=== PATIENT | female | born 1970 | race Caucasian/White ===

== ENCOUNTER 2019-12-06 16:15 | Inpatient (IN) | payer OTHER ==
[~2019-12-06] VITALS: Ht 157.5 cm; Wt 71.7 kg
[2019-12-06 16:20] VITALS: BP 132/93
--- NOTE | 2019-12-06 16:28 | NUR ---
PT TO BED 5 WITH STEADY GAIT
[2019-12-06] MEDS ORDERED: NACL 0.9% 1,000 ML IV SCH (16:47)
[2019-12-06] MEDS ORDERED: NACL 0.9% 500 ML IV ONE ×2 (16:47)
--- NOTE | 2019-12-06 16:58 | NUR ---
C/O GENERALIZED WEAKNESS WITH BLURRED VISION X 3 DAYS---DENIES RECENT INJURY FULL CLEAR SPEECH, AMBULATORY WITH STEADY GAIT, NO FACIAL ASYMMETRY, EQUAL MARKETING OPERATIONS ASSOCIATE/PUSHES---
[2019-12-06 17:06] LABS: BASOPHILS % (AUTO) 1.3 % (0.0-2.0); EOSINOPHILS % (AUTO) 0.4 % (0.0-4.0); HEMATOCRIT 43.4 % (36-48); HEMOGLOBIN 14.5 g/dL (12.0-16.0); LYMPHOCYTES # (AUTO) 1.5 K/uL (2.5-16.5); LYMPHOCYTES % (AUTO) 40.5 % (20.5-51.1); MEAN CORPUSCULAR HEMOGLOBIN 27 pg (27-31); MEAN CORPUSCULAR HGB CONC 33 g/dL (33-37); MEAN CORPUSCULAR VOLUME 81.5 fL (80-94); MONOCYTES # (AUTO) 0.3 K/uL (0.8-1.0); NEUTROPHILS # (AUTO) 1.8 K/uL (1.8-7.7); NEUTROPHILS % (AUTO) 48.8 % (42.2-75.2); PLATELET COUNT (AUTO) 212 K/uL (140-450); RED BLOOD CELL COUNT(AUTO) 5.32 MIL/uL (4.20-5.40); RED CELL DISTRIBUTION WIDTH 13.1 % (11.6-13.7); WHITE BLOOD COUNT (AUTO) 3.6 K/uL (4.8-10.8)
--- NOTE | 2019-12-06 17:10 | NUR ---
CXR AT BEDSIDE
[2019-12-06 17:12] LABS: APPEARANCE,URINE CLEAR (CLEAR); BILIRUBIN,URINE NEGATIVE (NEGATIVE); BLOOD, URINE TRACE-I (NEGATIVE); COLOR,URINE YELLOW (YELLOW); LEUKOCYTE ESTERASE ,URINE NEGATIVE (NEGATIVE); NITRITE, URINE NEGATIVE (NEGATIVE); PH,URINE 5.5 (5.0-9.0); UGLUCOSE 3+ (NEGATIVE)
[2019-12-06 17:42] LABS: PROTHROMBIN TIME 10.2 secs (10.8-13.4)
[2019-12-06 17:55] LABS: ANION GAP 14.1 (8-16); CARBON DIOXIDE 29.9 mmol/L (21-32); CHLORIDE 86 mmol/L (98-107); CREATININE 1.5 mg/dL (0.6-1.3); GFR ARICAN-AMERICAN 47 mL/min (>90); GLUCOSE 793 mg/dL (74-106); SODIUM SERUM 126 mmol/L (136-145); UREA NITROGEN, BLOOD 25 mg/dL (7-18)
[2019-12-06] MEDS ORDERED: INSULIN REGULAR, HUMAN 100 UNIT/ML VIAL IVP ONE (17:55)
[2019-12-06 17:56] LABS: ACETONE, SERUM NEGATIVE (NEGATIVE); ALBUMIN 4.3 g/dL (3.4-5.0); ASPARTATE AMINOTRANSFERASE 18 U/L (15-37); TOTAL BILIRUBIN 0.5 mg/dL (0.0-1.0)
[2019-12-06] MEDS ORDERED: SUMA100T1 PO (18:24)
[2019-12-06] MEDS ORDERED: HYDR12.516 PO (18:24)
[2019-12-06] MEDS ORDERED: LORA10TA19 PO (18:24)
[2019-12-06] MEDS ORDERED: OMEP20EC11 PO (18:24)
[2019-12-06] MEDS ORDERED: DIVA250E1 PO (18:24)
[2019-12-06] MEDS ORDERED: IBUP-2213 PO (18:24)
[2019-12-06] MEDS ORDERED: NAPR-54 PO (18:24)
[2019-12-06] MEDS ORDERED: CITA20TA15 PO (18:24)
[2019-12-06] MEDS ORDERED: AMOX500C25 PO (18:24)
[2019-12-06] MEDS ORDERED: GABA300C PO (18:24)
[2019-12-06] MEDS ORDERED: BACL10TA4 PO (18:24)
[2019-12-06] MEDS: NACL 0.9% 1,500 ML IV ONE ×2 (18:50→20:23)
--- NOTE | 2019-12-06 19:27 | NUR ---
Pt transferred to Tele via [facility] ROOM 120-A REPORT GIVEN TO KAREEM KO
[2019-12-06 19:55] VITALS: BP 100/60
--- NOTE | 2019-12-06 19:55 | NUR ---
RECIEVED PT FROM ER/ WHEELCHAIR . NID - , [id number] . IV SITE INTACT AND PATENT . BEARBLE ON AND OFF ABDL. PAIN. WALKS TO BED . ADMISSION ASSESSENT DONE . MRSA SPECIMEN SENT TO LAB. PUT ON SAFETY / FALL PRECAUTION PROTOCOL - REMINDS THE USE OF CALL LIGHT WHEN SHE WANTS TO GO O BATHROOM - BED ALARM ON - WILL CONT. TO MONITOR - WILL CONT. THE IV BOLUS - LACTIC ACID 3.3 .-CLOSE WATCH.
--- NOTE | 2019-12-06 20:23 | NUR ---
THE DR'S ORDER 1,500 BULUS IVF - THE 1,OOO CC - ADMINISTERED .
--- NOTE | 2019-12-06 20:57 | NUR ---
PAGED DR. BORGES REGARDING THE IVF FLUID OREDERD W/ TOTAL OF 3L BOLUS - LACTIC ACID 3.3 - WAITING CALL BACK
--- NOTE | 2019-12-06 20:58 | NUR ---
DR BORGES CALL HE SAID SAID YES THE IVF ORDERED IS 3L BOLUS AFTER 3L BOLUS GIVE NSS 5OO RUN FOR 100CC / HR . INFORM DR BORGES ABOUT THE LATEST HGT 393 - HE SAID HE WILL PUT FURTHER ORDER LATER .
[2019-12-06] MEDS: NACL 0.9% 1,000 ML IV SCH (21:02)
[2019-12-06] MEDS ORDERED: MORPHINE SULFATE 2 MG/ML SYR IVP PRN (21:05)
[2019-12-06] MEDS ORDERED: HYDROcodone/APAP 5/325 MG 1 TAB TAB PO PRN (21:05)
[2019-12-06] MEDS ORDERED: ONDANSETRON 4 MG/2 ML VIAL IVP PRN (21:05)
[2019-12-06] MEDS ORDERED: ACETAMINOPHEN 325 MG TAB PO PRN (21:05)
[2019-12-06] MEDS ORDERED: ZOLPIDEM 10 MG TAB PO PRN (21:10)
[2019-12-06] MEDS: NACL 0.9% 500 ML IV SCH (22:55)
[2019-12-07] VITALS: BP 116/75
--- NOTE | 2019-12-07 | NUR ---
MADE ROUNDS . NO S/SXS OF ACUTE DISTRESS NOTED AT THIS TIME.
[2019-12-07] MEDS: NACL 0.9% 500 ML IV SCH ×3 (02:55→12:55)
[2019-12-07] MEDS: NACL 0.9% 1,000 ML IV SCH (03:44)
[2019-12-07 04:00] VITALS: BP 117/76
--- NOTE | 2019-12-07 04:00 | NUR ---
MADE ROUNDS. NO S/SXS OF ACUTE DISTRESS NOTED AT THIS TIME.
[2019-12-07] MEDS ORDERED: glipiZIDE 10 MG TAB ONE (05:50)
--- NOTE | 2019-12-07 06:00 | NUR ---
MADE ROUNDS . HGT TAKEN - 3O3 - DUE GLUCOTROL P.O GIVEN - WILL CONT. TO MONITOR.
[2019-12-07 06:19] LABS: ANION GAP 13.1 (8-16); CARBON DIOXIDE 27.4 mmol/L (21-32); CREATININE 0.9 mg/dL (0.6-1.3); POTASSIUM 3.5 mmol/L (3.5-5.1)
[2019-12-07 06:25] LABS: BASOPHILS % (AUTO) 0.8 % (0.0-2.0); EOSINOPHILS % (AUTO) 0.4 % (0.0-4.0); HEMATOCRIT 35.9 % (36-48); HEMOGLOBIN 11.9 g/dL (12.0-16.0); LYMPHOCYTES % (AUTO) 48.7 % (20.5-51.1); MEAN CORPUSCULAR HEMOGLOBIN 27 pg (27-31); MEAN CORPUSCULAR HGB CONC 33 g/dL (33-37); MEAN CORPUSCULAR VOLUME 81.4 fL (80-94); MONOCYTES # (AUTO) 0.3 K/uL (0.8-1.0); MONOCYTES % (AUTO) 7.9 % (1.7-9.3); NEUTROPHILS # (AUTO) 1.8 K/uL (1.8-7.7); NEUTROPHILS % (AUTO) 42.2 % (42.2-75.2); PLATELET COUNT (AUTO) 165 K/uL (140-450); RED BLOOD CELL COUNT(AUTO) 4.41 MIL/uL (4.20-5.40); RED CELL DISTRIBUTION WIDTH 13.4 % (11.6-13.7); WHITE BLOOD COUNT (AUTO) 4.2 K/uL (4.8-10.8)
--- NOTE | 2019-12-07 07:26 | NUR ---
ENDORSED TO AM SHIFT -STABLE LATEST HGT 303
--- NOTE | 2019-12-07 07:27 | NUR ---
RECEIVED REPORT FROM GRID CASTING MACHINE OPERATOR HELPER NURSE FOR CONTINUITY OF CARE. PT IN STABLE CONDITION. RESPIRATIONS EVEN AND UNLABORED, ROOM AIR. IV INTACT AND PATENT. SAFETY MEASURES IN PLACE. BED IN LOW POSITION. BED ALARM ON. CALL LIGHT AT BEDSIDE. WILL CONTINUE TO MONITOR.
[2019-12-07] MEDS ORDERED: glipiZIDE 10 MG TAB PO SCH (07:30)
[2019-12-07 08:00] VITALS: BP 117/86
[2019-12-07] MEDS ORDERED: metFORMIN 850 MG TAB PO SCH (08:00)
--- NOTE | 2019-12-07 08:04 | NUR ---
PATIENT HAS BEEN SCREENED AND CATEGORIZED HIGH NUTRITION RISK. PATIENT WILL BE SEEN WITHIN 1-2 DAYS OF ADMISSION. 12/07/19-12/08/[address]
--- NOTE | 2019-12-07 08:13 | NUR ---
GAVE ORDERED DUE MEDICATIONS AT THIS TIME. PT TOLERATED WELL. BED IN LOW POSITION. CALL LIGHT AT BEDSIDE. WILL CONTINUE TO MONITOR.
[2019-12-07] MEDS ORDERED: ENOXAPARIN 40 MG/0.4 ML SYR SUBQ SCH (09:00)
--- NOTE | 2019-12-07 10:33 | NUR ---
PT SLEEPING AT THIS TIME. RESPIRATIONS EVEN AND UNLABORED. BED IN LOW POSITION. CALL LIGHT AT BEDSIDE. WILL CONTINUE TO MONITOR.
[2019-12-07] MEDS ORDERED: MORPHINE SULFATE 2 MG/ML SYR IVP PRN (12:25)
[2019-12-07] MEDS ORDERED: MAGNESIUM OXIDE 400 MG TAB PO SCH (12:45)
--- NOTE | 2019-12-07 12:45 | NUR ---
PT EATING LUNCH AT THIS TIME. PT IN STABLE CONDITION. BED IN LOW POSITION. CALL LIGHT AT BEDSIDE. WILL CONTINUE TO MONITOR.
--- NOTE | 2019-12-07 13:58 | NUR ---
DC PLANNING: PT WAS ADMITTED FROM HOME WITH A DX OF UNCONTROLLED DM BS OVER 700.ADMINISTERED REGULAR INSULIN, IVF AND STARTED METFORMIN 1000MG BID. CONSULTED WITH FNS FOR NEWLY DIABETIC . DC PLAN TO GO HOME WITH HOME [facility] WILL FOLLOW WITH THE PT # TO CONTACT [phone] FAXED TO [facility]
--- NOTE | 2019-12-07 14:10 | NUR ---
PT DRESSING TO PREPARE FOR UPCOMING DISCHARGE.
[2019-12-07] MEDS ORDERED: METF1000 PO (14:19)
[2019-12-07] MEDS ORDERED: GLIP10TA3 PO (14:20)
[2019-12-07] MEDS ORDERED: INFLUENZA VACCINE QUAD 0.5 ML SYR IMVAC ONE (14:48)
[2019-12-07] MEDS ORDERED: INFLUENZA VACCINE QUAD 0.5 ML SYR IMVAC PRN (15:00)
--- NOTE | 2019-12-07 15:00 | NUR ---
GAVE DISCHARGE INSTRUCTIONS AND PRESCRIPTION TO TAKE TO PHARMACY AT THIS TIME. PT VERBALIZED UNDERSTANDING OF INSTRUCTIONS. IV REMOVED, LUMEN INTACT. ID BAND REMOVED. PT WHEELED TO LOBBY IN STABLE CONDITION WHERE FAMILY WAS WAITING WITH VEHICLE.
--- NOTE | 2019-12-07 15:17 | NUR ---
Cuff Slitter Note: Patient is a 49-year-old female admitted for uncontrolled diabetes. Patient has PMHX of hypertension. Patient was admitted frmo home. SW attempted to conduct assessment with patient, but patient was discharged.
--- NOTE | 2019-12-07 16:30 | NUR ---
LEFT MESSAGE FOR PT TO JUVENILE COUNSELOR ADDITIONAL PRESCRIPTION ADDED BY SOULEYMANE ALTMAN.
== END 2019-12-07 15:02 | disposition home or self-care (01) | DRG 420 ==
LOC: MED 16:15 → MTU 18:33
PROVIDERS: ADMIT Internal Medicine Pulmonary Disease; ATTEND Internal Medicine Pulmonary Disease
DX: E11.00 Type 2 diabetes mellitus with hyperosmolarity without nonketotic hyperglycemic-hyperosmolar coma (NKHHC) (principal); E86.0 Dehydration; I10 Essential (primary) hypertension; G43.909 Migraine, unspecified, not intractable, without status migrainosus; F32.9 Major depressive disorder, single episode, unspecified; G89.29 Other chronic pain; Z79.899 Other long term (current) drug therapy
CPT/HCPCS: 36415; 36600; 71045; 80048; 80053; 81003; 82009; 82803; 82948; 83036; 83605; 83690; 83735; 84443; 84484; 85025; 85610; 85730; 87040; 87081; 87086; 93005; 96361; 96374; 99285; J1650; J1815; Q0092

== ENCOUNTER 2020-07-31 12:26 | Emergency (ER) | payer OTHER ==
[~2020-07-31] VITALS: Ht 157.5 cm; Wt 75.0 kg
[~2020-07-31 12:26] MED LIST: BACL10TA4 PO; CITA20TA15 PO; DIVA250E1 PO; GABA300C PO; GLIP10TA3 PO; HYDR12.516 PO; IBUP-2213 PO; LORA10TA19 PO; METF1000 PO; NAPR-54 PO; OMEP20EC11 PO; SUMA100T1 PO
[2020-07-31 13:05] VITALS: BP 124/91
--- NOTE | 2020-07-31 13:11 | NUR ---
Wait at lobby. Addendum: 07/31/20 at 1311 by [email or web address] HANDED ON URINE CUP.
--- NOTE | 2020-07-31 13:52 | NUR ---
RUQ ABDOMINAL PAIN 04/18 X 2 WEEKS & N/V/D X 2 DAYS. MED HX:DM. HTN
--- NOTE | 2020-07-31 13:54 | NUR ---
blood sugar 81 at this time.
--- NOTE | 2020-07-31 14:02 | NUR ---
Patient being evaluated by dr villarreal at triarge room
--- NOTE | 2020-07-31 14:16 | NUR ---
pt amb to bed 8
--- NOTE | 2020-07-31 14:24 | NUR ---
Lab at bedside for blood draw
[2020-07-31] MEDS: KETOROLAC 60 MG/2 ML VIAL IM ONE (14:26)
[2020-07-31 14:38] LABS: BASOPHILS # (AUTO) 0.1 K/uL (0.00-0.22); BASOPHILS % (AUTO) 1.2 % (0.0-2.0); EOSINOPHILS # (AUTO) 0.2 K/uL (0-0.4); EOSINOPHILS % (AUTO) 3.4 % (0.0-4.0); HEMATOCRIT 34.2 % (36-48); HEMOGLOBIN 11.3 g/dL (12.0-16.0); LYMPHOCYTES # (AUTO) 1.7 K/uL (2.5-16.5); MEAN CORPUSCULAR HEMOGLOBIN 30 pg (27-31); MEAN CORPUSCULAR HGB CONC 33 g/dL (33-37); MEAN CORPUSCULAR VOLUME 89.6 fL (80-94); MONOCYTES # (AUTO) 0.3 K/uL (0.8-1.0); MONOCYTES % (AUTO) 5.9 % (1.7-9.3); NEUTROPHILS # (AUTO) 2.2 K/uL (1.8-7.7); NEUTROPHILS % (AUTO) 50.5 % (42.2-75.2); PLATELET COUNT (AUTO) 254 K/uL (140-450); RED BLOOD CELL COUNT(AUTO) 3.82 MIL/uL (4.20-5.40); RED CELL DISTRIBUTION WIDTH 15.3 % (11.6-13.7); WHITE BLOOD COUNT (AUTO) 4.4 K/uL (4.8-10.8)
[2020-07-31 14:52] LABS: APPEARANCE,URINE CLEAR (CLEAR); BILIRUBIN,URINE NEGATIVE (NEGATIVE); BLOOD, URINE TRACE-L (NEGATIVE); COLOR,URINE YELLOW (YELLOW); LEUKOCYTE ESTERASE ,URINE NEGATIVE (NEGATIVE); NITRITE, URINE POSITIVE (NEGATIVE); PH,URINE 5.5 (5.0-9.0); UGLUCOSE NEGATIVE (NEGATIVE)
[2020-07-31 15:03] LABS: ANION GAP 15.3 (8-16); CARBON DIOXIDE 27.6 mmol/L (21-32); CREATININE 1.3 mg/dL (0.6-1.3); POTASSIUM 3.9 mmol/L (3.5-5.1); TOTAL BILIRUBIN 0.6 mg/dL (0.0-1.0)
[2020-07-31 15:38] LABS: WBC,URINE 0-5 /HPF (0-5)
[2020-07-31 15:40] VITALS: BP 124/91
--- NOTE | 2020-07-31 15:41 | NUR ---
Patient discharged with v/s stable. Written and verbal after care instructions given and explained. Patient alert, oriented and verbalized understanding of instructions. Ambulatory with steady gait. All questions addressed prior to discharge. ID band removed. Patient advised to follow up with PMD. Rx of Cephalexin 500mg, Zofran ODT, and Naprosyn 375mg given. Patient educated on indication of medication including possible reaction and side effects. Opportunity to ask questions provided and answered.
== END 2020-07-31 15:41 | disposition home or self-care (01) ==
LOC: MED 12:26
DX: N12 Tubulo-interstitial nephritis, not specified as acute or chronic (principal); R11.2 Nausea with vomiting, unspecified; R19.7 Diarrhea, unspecified; E11.9 Type 2 diabetes mellitus without complications; I10 Essential (primary) hypertension; Z90.49 Acquired absence of other specified parts of digestive tract; Z98.890 Other specified postprocedural states; Z79.84 Long term (current) use of oral hypoglycemic drugs; Z79.899 Other long term (current) drug therapy
CPT/HCPCS: 36415; 80053; 81001; 81025; 83690; 85025; 87086; 87186; 96372; 99283; J1885

== ENCOUNTER 2020-08-06 19:55 | Emergency (ER) | payer OTHER ==
[~2020-08-06] VITALS: Ht 157.5 cm; Wt 74.8 kg
[2020-08-06 20:05] VITALS: BP 146/83
--- NOTE | 2020-08-06 20:09 | NUR ---
To ED bed 07
--- NOTE | 2020-08-06 20:18 | NUR ---
PT BIB self C/O painful RT hand spasms lasting approximately 5 minutes, RT arm numbness x weeks, intermitent spasms in bilateral feet, and intermitent "bubble" pain in epigastric region after stretching that radiates to RUQ. PMH:DM, HTN Addendum: 08/06/20 at 2022 by DEB PT is AAOx4, cooperative, speaking in full complete sentences, facial symmetry intact, no drift noted, hand print color matcher strong/equal. PT denies pain at this time, - N/V/D, - constipation, ABD is soft/non-tender with bowel sounds x4 quadrants.
--- NOTE | 2020-08-06 20:21 | NUR ---
Dr Mckenzie at bedside
--- NOTE | 2020-08-06 20:21 | NUR ---
Damir simon in [facility] - 08/06/20 at [address] Harmon at bedside
--- NOTE | 2020-08-06 20:34 | NUR ---
Pt ambualted to restroom with steady gait.
--- NOTE | 2020-08-06 20:43 | NUR ---
lab at bedside
[2020-08-06 20:59] LABS: BASOPHILS % (AUTO) 0.6 % (0.0-2.0); EOSINOPHILS # (AUTO) 0.1 K/uL (0-0.4); EOSINOPHILS % (AUTO) 1.2 % (0.0-4.0); HEMATOCRIT 35.6 % (36-48); HEMOGLOBIN 11.8 g/dL (12.0-16.0); LYMPHOCYTES # (AUTO) 0.9 K/uL (2.5-16.5); LYMPHOCYTES % (AUTO) 15.4 % (20.5-51.1); MEAN CORPUSCULAR HEMOGLOBIN 30 pg (27-31); MEAN CORPUSCULAR HGB CONC 33 g/dL (33-37); MEAN CORPUSCULAR VOLUME 89.5 fL (80-94); MONOCYTES # (AUTO) 0.1 K/uL (0.8-1.0); NEUTROPHILS # (AUTO) 4.7 K/uL (1.8-7.7); NEUTROPHILS % (AUTO) 80.8 % (42.2-75.2); PLATELET COUNT (AUTO) 284 K/uL (140-450); RED BLOOD CELL COUNT(AUTO) 3.98 MIL/uL (4.20-5.40); RED CELL DISTRIBUTION WIDTH 14.7 % (11.6-13.7); WHITE BLOOD COUNT (AUTO) 5.8 K/uL (4.8-10.8)
[2020-08-06 21:30] LABS: ALBUMIN 4.1 g/dL (3.4-5.0); ANION GAP 26.5 (8-16); CREATININE 1.3 mg/dL (0.6-1.3); POTASSIUM 3.5 mmol/L (3.5-5.1); TOTAL BILIRUBIN 0.3 mg/dL (0.0-1.0)
--- NOTE | 2020-08-06 22:39 | NUR ---
PLACED WRIST AND FORARM SPLINT ON PT'S RIGHT WRIST, CHECKED PMSC'S BEFORE AND AFTER PLACING SPLINT WITHOUT INCIDENT.
--- NOTE | 2020-08-06 22:50 | NUR ---
+ CMS distal to splint applied to RT hand by JAIME Mejia.
[2020-08-06 22:53] VITALS: BP 140/80
--- NOTE | 2020-08-06 22:54 | NUR ---
Patient discharged with v/s stable. Written and verbal after care instructions given and explained. Patient verbalized understanding. Ambulatory with steady gait. All questions addressed prior to discharge. Advised to follow up with PMD.
== END 2020-08-06 22:54 | disposition home or self-care (01) ==
LOC: MED 19:55
DX: G56.03 Carpal tunnel syndrome, bilateral upper limbs (principal); M72.2 Plantar fascial fibromatosis; M62.838 Other muscle spasm; R10.13 Epigastric pain; E11.9 Type 2 diabetes mellitus without complications; I10 Essential (primary) hypertension; Z88.1 Allergy status to other antibiotic agents; Z79.899 Other long term (current) drug therapy; Z79.84 Long term (current) use of oral hypoglycemic drugs
CPT/HCPCS: 36415; 80053; 81002; 85025; 99283

== ENCOUNTER 2020-09-12 21:59 | Emergency (ER) | payer OTHER ==
[~2020-09-12] VITALS: Ht 157.5 cm; Wt 74.4 kg
[2020-09-12 22:35] VITALS: BP 133/109
[2020-09-12 23:05] VITALS: BP 142/92
== END 2020-09-13 00:03 | disposition home or self-care (01) ==
LOC: MED 21:59
DX: I10 Essential (primary) hypertension (principal); E11.9 Type 2 diabetes mellitus without complications; Z88.5 Allergy status to narcotic agent; Z20.828 Contact with and (suspected) exposure to other viral communicable diseases; Z79.899 Other long term (current) drug therapy
CPT/HCPCS: 99283

== ENCOUNTER 2021-03-12 18:04 | Emergency (ER) | payer OTHER ==
[~2021-03-12] VITALS: Ht 157.5 cm; Wt 73.5 kg
[2021-03-12 18:10] VITALS: BP 136/94
--- NOTE | 2021-03-12 18:32 | NUR ---
50 Y/O F BIB SELF FROM HOME, PT STATES SHE HAS BEEN HAVING A MIGRAINE SINCE TODAY AND HAS BEEN SENSTIVE TO SOUNDS AND LIGHT. PT DENIES ANY MEDICATION FOR RELIEF TODAY, TYPICALLY TAKES MED FOR MIGRAINES, UNSURE OF THE NAME, BUT DOES NOT HAVE SAID MEDS ANYMORE. DENIES N/V/D; SKIN IS PINK/WARM/DRY; AAOX4 WITH EVEN AND STEADY GAIT; LUNGS CLEAR BL; HR EVEN AND REGULAR; PT DENIES ANY FEVER, CP, SOB, OR COUGH AT THIS TIME; PATIENT STATES PAIN OF 10/10 AT THIS TIME; VSS; PATIENT POSITIONED FOR COMFORT; HOB ELEVATED; BEDRAILS UP X2; BED DOWN. ER MD MADE AWARE OF PT STATUS. PMH: DM, MIGRAINES ALLERGY: PENICILLIN, CEPHALEXIN MED: METFORMIN
[2021-03-12] MEDS ORDERED: diphenhydrAMINE 50 MG/ML VIAL IVP ONE (18:50)
[2021-03-12] MEDS ORDERED: KETOROLAC 30 MG/ML VIAL IVP ONE (18:50)
[2021-03-12] MEDS ORDERED: NACL 0.9% 1,000 ML IV ONE (18:50)
[2021-03-12] MEDS ORDERED: METOCLOPRAMIDE 10 MG/2 ML INJ VIAL IVP ONE (18:50)
--- NOTE | 2021-03-12 19:10 | NUR ---
REPORT RECEIVED FROM MAIKEL SIMENTAL FOR CONTINUATION OF CARE.
--- NOTE | 2021-03-12 20:18 | NUR ---
PATIENT LAYING IN BED, STATES SHE FEELS MUCH BETTER PAIN LEVEL 2 OUT OF 10 AND DOES NOT FEEL SHE NEEDS PAIN MEDICATIONS AT THIS TIME.
[2021-03-12] MEDS ORDERED: ACET-9234 PO (20:44)
[2021-03-12 21:08] VITALS: BP 113/77
--- NOTE | 2021-03-12 21:08 | NUR ---
Patient discharged with v/s stable. Written and verbal after care instructions given and explained. Patient alert, oriented and verbalized understanding of instructions. Ambulatory with steady gait. All questions addressed prior to discharge. ID band removed. Patient advised to follow up with PMD. Rx of FIORICET given. Patient educated on indication of medication including possible reaction and side effects. Opportunity to ask questions provided and answered.
== END 2021-03-12 21:08 | disposition home or self-care (01) ==
LOC: MED 18:04
DX: R51.9 Headache, unspecified (principal); H57.12 Ocular pain, left eye; H53.8 Other visual disturbances; R11.0 Nausea; J44.9 Chronic obstructive pulmonary disease, unspecified; E11.9 Type 2 diabetes mellitus without complications; I10 Essential (primary) hypertension; Z88.0 Allergy status to penicillin; Z88.1 Allergy status to other antibiotic agents; Z79.899 Other long term (current) drug therapy; Z79.84 Long term (current) use of oral hypoglycemic drugs
CPT/HCPCS: 96361; 96374; 96375; 99284; J1200; J1885; J2765; J7030

== ENCOUNTER 2022-04-29 10:48 | Emergency (ER) | payer OTHER ==
[~2022-04-29] VITALS: Ht 157.5 cm; Wt 65.4 kg
[~2022-04-29 10:48] MED LIST changes: +ACET-9234 PO; +METF-1274 PO; -METF1000 PO
[2022-04-29 10:55] VITALS: BP 141/87
--- NOTE | 2022-04-29 11:02 | NUR ---
51 Y/O FEMALE BIB SELF C/O LLQ ABDOMINAL PAIN, HEADACHE, LEGS, FEET CRAMPING X 2DAYS AND C/O N/V YESTERDAY. BP 141/87, BLOOD SUGAR 165 AT THIS TIME. LUNG SOUNDS CTA. PT STATES SHE TOOK FIORICET PRIOR TO ARRIVAL TO ED WITH NO SYMPTOMATIC RELIEF. PT DENIES ANY ALLEVIATING OR AGGGREVATING FACTORS. PT DENIES FEVER OR CHILLS. PT DENIES CHEST PAIN, SOB. PMH: DM, HTN, GERD, HYPOTHYROIDISM, HEADACHES ALLERGIES:PENICILLIN, CEPHALEXIN
--- NOTE | 2022-04-29 12:22 | NUR ---
PT TO ER BED 4 Addendum: 04/29/22 at 1222 by MEDRJJ PT AMB TO ER BED 4
[2022-04-29] MEDS ORDERED: KETOROLAC 30 MG/ML VIAL IVP ONE (12:40)
[2022-04-29] MEDS ORDERED: NACL 0.9% 1,000 ML IV ONE (12:40)
[2022-04-29 13:14] LABS: BASOPHILS # (AUTO) 0.1 K/uL (0.00-0.22); BASOPHILS % (AUTO) 1.3 % (0.0-2.0); EOSINOPHILS # (AUTO) 0.1 K/uL (0-0.4); EOSINOPHILS % (AUTO) 1.9 % (0.0-4.0); HEMATOCRIT 38.7 % (36-48); HEMOGLOBIN 12.9 g/dL (12.0-16.0); LYMPHOCYTES # (AUTO) 1.8 K/uL (2.5-16.5); LYMPHOCYTES % (AUTO) 45.9 % (20.5-51.1); MEAN CORPUSCULAR HEMOGLOBIN 31 pg (27-31); MEAN CORPUSCULAR HGB CONC 33 g/dL (33-37); MEAN CORPUSCULAR VOLUME 92.7 fL (80-94); MONOCYTES # (AUTO) 0.3 K/uL (0.8-1.0); NEUTROPHILS # (AUTO) 1.7 K/uL (1.8-7.7); NEUTROPHILS % (AUTO) 42.9 % (42.2-75.2); PLATELET COUNT (AUTO) 235 K/uL (140-450); RED BLOOD CELL COUNT(AUTO) 4.17 MIL/uL (4.20-5.40); RED CELL DISTRIBUTION WIDTH 15.5 % (11.6-13.7); WHITE BLOOD COUNT (AUTO) 3.9 K/uL (4.8-10.8)
[2022-04-29 13:18] LABS: ALBUMIN 4.3 g/dL (3.4-5.0); ANION GAP 12.9 (8-16); CARBON DIOXIDE 28.9 mmol/L (21-32); CREATININE 0.9 mg/dL (0.6-1.3); TOTAL BILIRUBIN 1.2 mg/dL (0.0-1.0)
[2022-04-29 13:52] LABS: POTASSIUM 2.8 mmol/L (3.5-5.1)
[2022-04-29] MEDS ORDERED: KCL 20 MEQ/WATER INJ PREMIX 100 ML IV ONE ×2 (14:10→14:25)
--- NOTE | 2022-04-29 14:28 | NUR ---
PT TAKEN TO CT SCAN VIA GREGOR
--- NOTE | 2022-04-29 15:06 | NUR ---
PT RESTING IN BED IN NO APPARENT DISTRESS, BREATHING EVEN AND UNLABORED.
[2022-04-29 15:12] LABS: BILIRUBIN,URINE NEGATIVE (NEGATIVE); BLOOD, URINE TRACE-I (NEGATIVE); COLOR,URINE YELLOW (YELLOW); LEUKOCYTE ESTERASE ,URINE TRACE (NEGATIVE); NITRITE, URINE POSITIVE (NEGATIVE); UGLUCOSE NEGATIVE (NEGATIVE)
[2022-04-29 15:13] LABS: APPEARANCE,URINE CLOUDY (CLEAR)
[2022-04-29 15:44] LABS: RBC,URINE NONE SEEN /HPF (0-5)
[2022-04-29] MEDS ORDERED: ACET-10509 PO (16:53)
[2022-04-29] MEDS ORDERED: IBUP-2230 PO (16:53)
[2022-04-29 16:54] VITALS: BP 128/75
== END 2022-04-29 16:54 | disposition home or self-care (01) ==
LOC: MED 10:48
DX: G43.909 Migraine, unspecified, not intractable, without status migrainosus (principal); E87.6 Hypokalemia; R10.32 Left lower quadrant pain; R11.2 Nausea with vomiting, unspecified; R19.7 Diarrhea, unspecified; J44.9 Chronic obstructive pulmonary disease, unspecified; E11.9 Type 2 diabetes mellitus without complications; I10 Essential (primary) hypertension; E03.9 Hypothyroidism, unspecified; Z79.899 Other long term (current) drug therapy; Z79.1 Long term (current) use of non-steroidal anti-inflammatories (NSAID); Z88.0 Allergy status to penicillin; Z88.1 Allergy status to other antibiotic agents
CPT/HCPCS: 36415; 74176; 80053; 81001; 81025; 82948; 85025; 87086; 96361; 96365; 96375; 99284; J1885; J3480; J7030

== ENCOUNTER 2022-09-30 21:11 | Emergency (ER) | payer OTHER ==
[~2022-09-30] VITALS: Ht 157.5 cm; Wt 64.4 kg
[~2022-09-30 21:11] MED LIST changes: +ACET-10509 PO; +IBUP-2230 PO
[2022-09-30 21:16] VITALS: BP 121/100
--- NOTE | 2022-09-30 21:25 | NUR ---
PT TAKEN TO CHAIR
--- NOTE | 2022-09-30 21:46 | NUR ---
PT MOVED TO ER BED 7
[2022-09-30] MEDS ORDERED: ALBUTEROL SULFATE/IPRATROPIU 3 ML SOL IH ONE (21:50)
--- NOTE | 2022-09-30 21:59 | NUR ---
COVID SWABS COLLECTED AND SENT TO LAB
--- NOTE | 2022-09-30 22:06 | NUR ---
X-Ray at bedside.
--- NOTE | 2022-09-30 22:06 | NUR ---
Respiratory Therapist at bedside for respiratory intervention.
--- NOTE | 2022-09-30 22:10 | NUR ---
XRAY AT BEDSIDE
[2022-09-30] MEDS ORDERED: ROBAC PO (22:48)
[2022-09-30] MEDS ORDERED: PRED20TA5 PO (22:48)
[2022-09-30] MEDS ORDERED: ALBU0.0912 IH (22:48)
[2022-09-30] MEDS ORDERED: predniSONE 20 MG TAB PO ONE (22:50)
[2022-09-30 23:15] VITALS: BP 121/100
--- NOTE | 2022-09-30 23:15 | NUR ---
Patient discharged with v/s stable. Written and verbal after care instructions given and explained. Patient alert, oriented and verbalized understanding of instructions. Ambulatory with steady gait. All questions addressed prior to discharge. ID band removed. Patient advised to follow up with PMD. Rx of PROVENTIL DELTASONE GUAIFENESIN given.
--- NOTE | 2022-09-30 23:16 | NUR ---
The patient's care was reviewed and supervised by Ani Alaniz RN.
== END 2022-09-30 23:15 | disposition home or self-care (01) ==
LOC: MED 21:11
DX: J20.9 Acute bronchitis, unspecified (principal); Z20.822 Contact with and (suspected) exposure to COVID-19; J44.9 Chronic obstructive pulmonary disease, unspecified; E11.9 Type 2 diabetes mellitus without complications; E03.9 Hypothyroidism, unspecified; I10 Essential (primary) hypertension; Z90.49 Acquired absence of other specified parts of digestive tract; Z90.710 Acquired absence of both cervix and uterus; Z98.890 Other specified postprocedural states; Z79.84 Long term (current) use of oral hypoglycemic drugs; Z79.899 Other long term (current) drug therapy; Z88.0 Allergy status to penicillin; Z88.1 Allergy status to other antibiotic agents
CPT/HCPCS: 71045; 87426; 87804; 99284; J7512; Q0092

== ENCOUNTER 2023-05-24 19:57 | Emergency (ER) | payer OTHER ==
[~2023-05-24] VITALS: Ht 157.5 cm; Wt 66.2 kg
[~2023-05-24 19:57] MED LIST changes: +ALBU0.0912 IH; +PRED20TA5 PO; +ROBAC PO
[2023-05-24 20:34] VITALS: BP 126/91; PULSE 84; RESP 18; TEMP 96.7; O2SAT 98
--- NOTE | 2023-05-24 22:06 | NUR ---
PT TO BED 3
--- NOTE | 2023-05-24 23:49 | NUR ---
DR EXAMING THE PT
[2023-05-24] MEDS ORDERED: ACETAMIN/CODEINE 120/12MG-5ML 5 ML UDC PO ONE (23:50)
[2023-05-24] MEDS ORDERED: KETOROLAC 30 MG/ML VIAL IM ONE (23:50)
--- NOTE | 2023-05-25 | NUR ---
X RAY AT THE BEDSIDE
[2023-05-25] MEDS ORDERED: AZIT250T4 PO (01:42)
[2023-05-25] MEDS ORDERED: ROBAC PO (01:42)
[2023-05-25] MEDS ORDERED: NAPR-54 PO (01:42)
[2023-05-25 01:57] VITALS: BP 122/81; PULSE 84; RESP 18; TEMP 96.7; O2SAT 98
--- NOTE | 2023-05-25 01:58 | NUR ---
Patient discharged with v/s stable. Written and verbal after care instructions given and explained. Patient alert, oriented and verbalized understanding of instructions. Ambulatory with steady gait. All questions addressed prior to discharge. ID band removed. Patient advised to follow up with PMD. Rx of azithromycin, naproxen and codine given. Patient educated on indication of medication including possible reaction and side effects. Opportunity to ask questions provided and answered.
== END 2023-05-25 01:48 | disposition home or self-care (01) ==
LOC: MED 19:57
DX: J20.9 Acute bronchitis, unspecified (principal); Z20.822 Contact with and (suspected) exposure to COVID-19; J45.909 Unspecified asthma, uncomplicated; J44.9 Chronic obstructive pulmonary disease, unspecified; I11.0 Hypertensive heart disease with heart failure; E03.9 Hypothyroidism, unspecified; Z88.0 Allergy status to penicillin; Z88.8 Allergy status to other drugs, medicaments and biological substances; Z79.899 Other long term (current) drug therapy; Z90.49 Acquired absence of other specified parts of digestive tract; Z90.710 Acquired absence of both cervix and uterus
CPT/HCPCS: 71045; 87426; 87804; 96374; 99284; J1885; Q0092

== ENCOUNTER 2023-10-13 17:28 | Emergency (ER) | payer OTHER ==
[~2023-10-13] VITALS: Ht 157.5 cm; Wt 66.2 kg
[~2023-10-13 17:28] MED LIST changes: +AZIT250T4 PO
[2023-10-13 17:48] VITALS: BP 142/99; PULSE 93; RESP 18; TEMP 98.7; O2SAT 98
[2023-10-13] MEDS ORDERED: HYDROcodone/APAP 5/325 MG 1 TAB TAB PO ONE (18:10)
[2023-10-13 19:15] LABS: BASOPHILS # (AUTO) 0.1 K/uL (0.00-0.22); EOSINOPHILS % (AUTO) 0.1 % (0.0-4.0); HEMATOCRIT 35.3 % (36-48); HEMOGLOBIN 11.6 g/dL (12.0-16.0); LYMPHOCYTES # (AUTO) 2.2 K/uL (2.5-16.5); LYMPHOCYTES % (AUTO) 29.8 % (20.5-51.1); MEAN CORPUSCULAR HEMOGLOBIN 29 pg (27-31); MEAN CORPUSCULAR HGB CONC 33 g/dL (33-37); MEAN CORPUSCULAR VOLUME 88.2 fL (80-94); MONOCYTES # (AUTO) 0.4 K/uL (0.8-1.0); MONOCYTES % (AUTO) 4.9 % (1.7-9.3); NEUTROPHILS # (AUTO) 4.7 K/uL (1.8-7.7); NEUTROPHILS % (AUTO) 64.2 % (42.2-75.2); PLATELET COUNT (AUTO) 205 K/uL (140-450); RED CELL DISTRIBUTION WIDTH 16.9 % (11.6-13.7); WHITE BLOOD COUNT (AUTO) 7.4 K/uL (4.8-10.8)
[2023-10-13 19:25] LABS: CALCIUM 8.6 mg/dL (8.5-10.1); CARBON DIOXIDE 25.2 mmol/L (21-32); POTASSIUM 3.2 mmol/L (3.5-5.1)
[2023-10-13] MEDS ORDERED: KETOROLAC 30 MG/ML VIAL IM ONE (20:00)
[2023-10-13] MEDS ORDERED: NAPR-1704 PO (21:21)
[2023-10-13 21:38] VITALS: BP 138/80; PULSE 88; RESP 16; TEMP 98
[2023-10-15 05:45] VITALS: O2SAT 98
== END 2023-10-13 21:38 | disposition home or self-care (01) ==
LOC: MED 17:28
DX: M25.561 Pain in right knee (principal); R05.9 Cough, unspecified; J00 Acute nasopharyngitis [common cold]; J44.9 Chronic obstructive pulmonary disease, unspecified; J45.909 Unspecified asthma, uncomplicated; E03.9 Hypothyroidism, unspecified; E11.9 Type 2 diabetes mellitus without complications; I10 Essential (primary) hypertension; Z79.4 Long term (current) use of insulin; Z79.899 Other long term (current) drug therapy; Z88.0 Allergy status to penicillin; Z88.8 Allergy status to other drugs, medicaments and biological substances
CPT/HCPCS: 36415; 73562; 80048; 85025; 85651; 96372; 99284; J1885